=== PATIENT | female | born 2000 | race Asian ===

== ENCOUNTER 2018-04-01 18:14 | Outpatient (CLI) | payer SELFPAY ==
[~2018-04-01] VITALS: Ht 170.2 cm; Wt 76.0 kg
[2018-04-01 19:43] LABS: CLUE CELLS NONE SEEN (NONE SEEN); WET PREP WBCS MODERATE (FEW)
[2018-04-01 20:24] LABS: AMPHETAMINE SCREEN, URINE Negative (Negative); BARBITURATE SCREEN, URINE Negative (Negative); BENZODIAZEPINE SCREEN, URINE Negative (Negative); CANNABINOID SCREEN, URINE Negative (Negative); COCAINE SCREEN, URINE Negative (Negative); METHADONE SCREEN, URINE Negative (Negative); OPIATE SCREEN, URINE Negative (Negative)
== END 2018-04-01 19:00 | disposition home or self-care (01) ==
LOC: LDOP 18:14
PROVIDERS: ATTEND Student in an Organized Health Care Education/Training Program
DX: O36.8130 Decreased fetal movements, third trimester, not applicable or unspecified (principal); Z3A.33 33 weeks gestation of pregnancy
CPT/HCPCS: 59025; 80307; 87210; 87808; 99211; G0463

== ENCOUNTER 2018-05-22 05:19 | Inpatient (IN) | payer BC, MEDICAID ==
[~2018-05-22] VITALS: Ht 170.2 cm; Wt 82.3 kg
[2018-05-22] MEDS: OXYTOCIN 30U/ 0.9% NaCL 500ML 500 ML IV SCH ×4 (05:21→16:01)
[2018-05-22] MEDS ORDERED: SODIUM CITRATE/CITRIC ACID 30 ML UDC ONE (05:22)
[2018-05-22] MEDS ORDERED: METOCLOPRAMIDE 5 MG/ML, 2ML ONE (05:22)
[2018-05-22] MEDS ORDERED: OXYTOCIN 30U/ 0.9% NaCL 500ML 500 ML ONE (05:23)
[2018-05-22] MEDS ORDERED: METOCLOPRAMIDE 5 MG/ML, 2ML IV ONE (05:30)
[2018-05-22] MEDS ORDERED: LACTATED RINGERS 1,000 ML IVBOLUS ONE (05:30)
[2018-05-22] MEDS ORDERED: SODIUM CITRATE/CITRIC ACID 30 ML UDC PO ONE (05:30)
[2018-05-22 05:38] VITALS: BP 119/75
[2018-05-22 05:53] LABS: BASOPHILS # (AUTO) 0.05 x10^3/uL (0-0.3); BASOPHILS % (AUTO) 0 % (0-1); EOSINOPHILS # (AUTO) 0.16 x10^3/uL (0-0.8); EOSINOPHILS % (AUTO) 1 % (1-7); LYMPHOCYTES # (AUTO) 2.37 x10^3/uL (1-6.1); LYMPHOCYTES % (AUTO) 21 % (22-44); MD NO; MEAN CORPUSCULAR HEMOGLOBIN 28.6 pg (27.0-34.8); MEAN CORPUSCULAR HGB CONC 33.9 g/dL (32.4-35.8); MEAN CORPUSCULAR VOLUME 84.3 fL (80-100); MEAN PLATELET VOLUME 9.5 fL (7.4-10.4); MONOCYTES # (AUTO) 0.75 x10^3/uL (0-1.4); MONOCYTES % (AUTO) 7 % (2-9); NEUTROPHILS # (AUTO) 7.84 x10^3/uL (1.8-8.0); NEUTROPHILS % (AUTO) 70 % (42-75); PLATELET COUNT 235 x10^3/uL (130-400); RED BLOOD COUNT 4.03 x10^6/uL (3.82-5.3); RED CELL DISTRIBUTION WIDTH 13.9 % (9.6-15.2)
[2018-05-22] MEDS: LACTATED RINGERS 1,000 ML IV SCH ×10 (06:12→23:10)
[2018-05-22] MEDS ORDERED: KETOROLAC 30 MG/1 ML ONE (12:49)
[2018-05-22] MEDS ORDERED: CEFAZOLIN 1,000 MG ONE (12:49)
[2018-05-22] MEDS ORDERED: FENTANYL PF 100 MCG/2ML ONE (12:49)
[2018-05-22] MEDS ORDERED: OXYTOCIN 10 UNITS/ML, 1ML ONE (12:49)
[2018-05-22] MEDS ORDERED: PREN1TAB60 PO (13:14)
[2018-05-22] MEDS ORDERED: ONDANSETRON 2MG/ML, 2ML ONE (14:37)
[2018-05-22] MEDS ORDERED: MISOPROSTOL 200 MCG TABLET PR PRN (15:30)
[2018-05-22] MEDS ORDERED: MORPHINE SULFATE 4 MG/ML, 1ML IVPush PRN (15:30)
[2018-05-22] MEDS ORDERED: EPHEDRINE 50 MG/ML, 1ML IVPush PRN (15:30)
[2018-05-22] MEDS ORDERED: METOCLOPRAMIDE 5 MG/ML, 2ML IV PRN (15:30)
[2018-05-22] MEDS ORDERED: OXYcodone 5 MG/5 ML ORAL.SOL UDC PO PRN (15:30)
[2018-05-22] MEDS ORDERED: METHYLERGONOVINE 0.2 MG/ML IM PRN (15:30)
[2018-05-22] MEDS ORDERED: FENTANYL PF 100 MCG/2ML IV PRN (15:30)
[2018-05-22] MEDS ORDERED: BISACODYL 10 MG SUPP PR PRN (15:30)
[2018-05-22] MEDS ORDERED: ACETAMINOPHEN 325 MG TABLET PO PRN (15:30)
[2018-05-22] MEDS ORDERED: CARBOPROST TROMETHAMINE 250 MCG/ML, 1ML IM PRN (15:30)
[2018-05-22] MEDS ORDERED: DIPHENHYDRAMINE 50 MG/ML, 1ML IVPush PRN (15:30)
[2018-05-22] MEDS ORDERED: GLYCERIN ADULT SUPP PR PRN (15:30)
[2018-05-22] MEDS ORDERED: ONDANSETRON 2MG/ML, 2ML IV PRN ×2 (15:30)
[2018-05-22] MEDS ORDERED: IBUPROFEN 600 MG TABLET PO PRN (15:30)
[2018-05-22 17:05] VITALS: BP 132/82
[2018-05-22] MEDS: KETOROLAC 30 MG/1 ML IV SCH ×2 (17:13→23:03)
[2018-05-22] MEDS: OXYcodone/APAP 5/325MG TABLET PO PRN (17:44)
[2018-05-22] MEDS: OXYcodone IR 5MG TABLET PO PRN ×2 (18:18→21:57)
[2018-05-22 19:40] VITALS: BP 115/71
[2018-05-22 22:15] LABS: BASOPHILS % (AUTO) 1 % (0-1); EOSINOPHILS # (AUTO) 0.01 x10^3/uL (0-0.8); EOSINOPHILS % (AUTO) 0 % (1-7); LYMPHOCYTES # (AUTO) 1.71 x10^3/uL (1-6.1); LYMPHOCYTES % (AUTO) 14 % (22-44); MD NO; MEAN CORPUSCULAR HEMOGLOBIN 28.6 pg (27.0-34.8); MEAN CORPUSCULAR HGB CONC 33.7 g/dL (32.4-35.8); MEAN CORPUSCULAR VOLUME 84.9 fL (80-100); MEAN PLATELET VOLUME 9.2 fL (7.4-10.4); MONOCYTES # (AUTO) 0.56 x10^3/uL (0-1.4); MONOCYTES % (AUTO) 5 % (2-9); NEUTROPHILS # (AUTO) 10.17 x10^3/uL (1.8-8.0); NEUTROPHILS % (AUTO) 81 % (42-75); PLATELET COUNT 208 x10^3/uL (130-400); RED BLOOD COUNT 3.51 x10^6/uL (3.82-5.3); RED CELL DISTRIBUTION WIDTH 13.7 % (9.6-15.2)
[2018-05-22 23:50] VITALS: BP 113/69
[2018-05-23] MEDS: OXYTOCIN 30U/ 0.9% NaCL 500ML 500 ML IV SCH ×5 (01:21→21:21)
[2018-05-23] MEDS: OXYcodone IR 5MG TABLET PO PRN ×2 (02:03→06:22)
[2018-05-23] MEDS: KETOROLAC 30 MG/1 ML IV SCH ×5 (04:39→22:47)
[2018-05-23 04:45] VITALS: BP 117/76
[2018-05-23] MEDS: LACTATED RINGERS 1,000 ML IV SCH ×3 (07:10→23:10)
[2018-05-23 08:30] VITALS: BP 132/74
[2018-05-23] MEDS: PRENATAL VIT/IRON/FA 1 EACH TABLET PO SCH (09:00)
[2018-05-23] MEDS: DOCUSATE 100 MG CAPSULE PO PRN ×2 (10:44→21:01)
[2018-05-23 11:45] VITALS: BP 123/85
[2018-05-23] MEDS: OXYcodone/APAP 5/325MG TABLET PO PRN ×2 (16:58→21:01)
[2018-05-23 20:40] VITALS: BP 116/77
[2018-05-24] MEDS: OXYcodone IR 5MG TABLET PO PRN ×3 (00:57→10:29)
[2018-05-24] MEDS: KETOROLAC 30 MG/1 ML IV SCH ×2 (05:06→11:01)
[2018-05-24 07:25] VITALS: BP 111/63
[2018-05-24] MEDS: DOCUSATE 100 MG CAPSULE PO PRN (09:02)
[2018-05-24] MEDS: PRENATAL VIT/IRON/FA 1 EACH TABLET PO SCH (09:02)
[2018-05-24] MEDS: OXYTOCIN 30U/ 0.9% NaCL 500ML 500 ML IV SCH ×2 (09:17→09:18)
[2018-05-24] MEDS: LACTATED RINGERS 1,000 ML IV SCH (09:17)
[2018-05-24] MEDS ORDERED: IBUP-1222 PO (11:57)
[2018-05-24] MEDS ORDERED: OXYC-302 PO (11:58)
== END 2018-05-24 13:00 | disposition home or self-care (01) | DRG 788 ==
LOC: LDIP 05:19 → 2NW 17:05
PROVIDERS: ADMIT Student in an Organized Health Care Education/Training Program; ATTEND Student in an Organized Health Care Education/Training Program
PROC: 10D00Z1 Extraction of Products of Conception, Low, Open Approach (ICD-10-PCS; principal; 2018-05-22)
DX: O32.8XX0 Maternal care for other malpresentation of fetus, not applicable or unspecified (principal); Z3A.39 39 weeks gestation of pregnancy; Z37.0 Single live birth
CPT/HCPCS: 36415; 85025; 86850; 86900; G0378; J0690; J1885; J2405; J3010; J2590; J7120